=== PATIENT | female | born 1990 | race Caucasian/White ===

== ENCOUNTER 2016-06-09 10:19 | Emergency (ER) | payer BC, OTHER ==
[2016-06-09 10:26] VITALS: BP 118/70
--- NOTE | 2016-06-09 10:29 | ER Document Report ---
ED Medical Screen (RME) - General Stated Complaint: TOOTH PAIN Mode of Arrival: Ambulatory Information source: Patient Notes: Patient complains of dental pain off and on for one week. Patient reports having a recent dental extraction last week. No fever. hx: None I have greeted and performed a rapid initial assessment of this patient. A comprehensive ED assessment and evaluation of the patient, analysis of test results and completion of the medical decision making process will be conducted by additional ED providers. TRAVEL OUTSIDE OF THE [place] IN LAST 30 DAYS: No - Related Data Allergies/Adverse Reactions: amoxicillin [Amoxicillin] Allergy (Severe, Verified 06/09/16 10:28) sob, swelling clindamycin [Clindamycin] Allergy (Severe, Verified 06/09/16 10:28) rash, sob plums Allergy (Severe, Uncoded 06/09/16 10:28) swelling Past Medical History - Past Medical History Cardiac Medical History: Reports: Hx Hypertension - htn as a teen. none now Neurological Medical History: Skin Medical History: Reports Hx Cellulitis Infectious Medical History: Past Surgical History: Reports: Hx Section - x'2, Hx Tonsillectomy - Immunizations Hx Diphtheria, Pertussis, Tetanus Vaccination: Yes Physical Exam - Vital signs Vitals: Temp Pulse Resp BP Pulse Ox 97.8 F 75 16 118/70 100 06/09/16 10:25 06/09/16 10:06/09/16 10:06/09/16 10:25 06/09/16 10:25 - General General appearance: Appears well, Alert In distress: None Course - Vital Signs Vital signs: Temp Pulse Resp BP Pulse Ox 97.8 F 75 16 118/70 100 06/09/16 10:25 06/09/16 10:25 06/09/16 10:25 06/09/16 10:25 06/09/16 10:25
--- NOTE | 2016-06-09 12:21 | ER Document Report ---
ED Oral Problem - General Chief Complaint: Mouth Problem Stated Complaint: TOOTH PAIN Mode of Arrival: Ambulatory Information source: Patient Notes: 25-year-old female presents to the emergency department complaining of right upper posterior dental/gum pain and swelling. Patient reports had dental extraction last week and has had increased pain with localized swelling since. Denies fever or drainage, difficulty breathing or swallowing. TRAVEL OUTSIDE OF THE [place] IN LAST 30 DAYS: No - HPI Patient complains to provider of: Toothache Onset: Gradual Quality of pain: Achy Severity: Moderate Pain Level: 3 Context: Recent dental extractions Associated symptoms: Toothache Similar symptoms previously: Yes Recently seen / treated by doctor/dentist: Yes - Related Data Allergies/Adverse Reactions: amoxicillin [Amoxicillin] Allergy (Severe, Verified 06/09/16 10:28) sob, swelling clindamycin [Clindamycin] Allergy (Severe, Verified 06/09/16 10:28) rash, sob plums Allergy (Severe, Uncoded 06/09/16 10:28) swelling Past Medical History - General Information source: Patient - Social History Smoking Status: Unknown if Ever Smoked Chew tobacco use (# tins/day): No Frequency of alcohol use: Occasional Drug Abuse: None Lives with: Family Family History: Arthritis, CAD, DM - p, Hyperlipidemia, Hypertension, Malignancy , Thyroid Disfunction Patient has suicidal ideation: No Patient has homicidal ideation: No - Past Medical History Cardiac Medical History: Reports: Hx Hypertension - htn as a teen. none now Neurological Medical History: Renal/ Medical History: Denies: Hx Peritoneal Dialysis Skin Medical History: Reports Hx Cellulitis Infectious Medical History: Past Surgical History: Reports: Hx Section - x'2, Hx Orthopedic Surgery - Finger, Hx Tonsillectomy - Immunizations Hx Diphtheria, Pertussis, Tetanus Vaccination: Yes Review of Systems - Review of Systems Constitutional: No symptoms reported EENT: See HPI Cardiovascular: No symptoms reported Respiratory: No symptoms reported Gastrointestinal: No symptoms reported Genitourinary: No symptoms reported Female Genitourinary: No symptoms reported Musculoskeletal: No symptoms reported Skin: No symptoms reported Hematologic/Lymphatic: No symptoms reported Neurological/Psychological: No symptoms reported -: Yes All other systems reviewed and negative Physical Exam - Vital signs Vitals: Temp Pulse Resp BP Pulse Ox 97.8 F 75 16 118/70 100 06/09/16 10:25 06/09/16 10:25 06/09/16 10:25 06/09/16 10:25 06/09/16 10:25 Interpretation: Normal - General General appearance: Appears well, Alert In distress: None - HEENT Head: Normocephalic, Atraumatic Eyes: Normal Conjunctiva: Normal Pupils: PERRL Ears: Normal External canal: Normal Tympanic membrane: Normal Sinus: Normal Nasal: Normal Mouth/Lips: No: Angioedema Mucous membranes: Normal, Moist Teeth diagram: 1 - Tenderness to palpation and mild localized swelling. No drainage or fluctuance. Pharynx: Normal. No: Blood in hypopharynx, Erythema, Exudate, Peritonsillar abscess, Post nasal drainage, Retropharyngeal abscess, Tonsillar hypertrophy, Uvular edema, Potential airway comprom., Other Neck: Normal. No: Anterior cervical chain, Posterior cervical chain, Lymphadenopathy, Meningismus, Subcutaneous emphysema - Respiratory Respiratory status: No respiratory distress Chest status: Nontender Breath sounds: Normal Chest palpation: Normal - Cardiovascular Rhythm: Regular Heart sounds: Normal auscultation Murmur: No - Extremities General upper extremity: Normal inspection, Nontender, Normal color, Normal ROM , Normal temperature General lower extremity: Normal inspection, Nontender, Normal color, Normal ROM , Normal temperature, Normal weight bearing - Neurological Neuro grossly intact: Yes Cognition: Normal Orientation: AAOx4 [place] Coma Scale Eye Opening: Spontaneous Angelita Coma Scale Verbal: Oriented [place] Coma Scale Motor: Obeys Commands [place] Coma Scale Total: 15 Speech: Normal Motor strength normal: LUE, RUE, LLE, RLE Sensory: Normal - Psychological Associated symptoms: Normal affect, Normal mood - Skin Skin Temperature: Warm Skin Moisture: Dry Skin Color: Normal Course - Re-evaluation Re-evalutation: 06/09/16 12:27 Patient hemodynamically stable, in no distress, afebrile, nontoxic, and appears well-hydrated. No suggestion of abscess, Darrion angina, or significant deep space or soft tissue infection at this time. Will give short course of Keflex due to patient reported allergy to amoxicillin and clindamycin. States has taken cephalexin in the past without adverse affects. Patient appears stable for discharge and agrees with home care, follow-up with dental provider, and ED return precautions. - Vital Signs Vital signs: Temp Pulse Resp BP Pulse Ox 97.8 F 75 16 118/70 100 06/09/16 10:25 06/09/16 10:25 06/09/16 10:25 06/09/16 10:25 06/09/16 10:25 Discharge - Discharge Clinical Impression: Pain, dental Condition: Stable Disposition: HOME, SELF-CARE Instructions: Cephalexin ([facility]), Anti-Inflammatory Medication ([facility]), Toothache ( [facility]) Additional Instructions: Follow-up with your dentist on Friday as discussed. Return to the emergency department for any worsening symptoms or concerns. Prescriptions: Cephalexin Monohydrate [Keflex 500 mg Capsule] 500 mg PO BID 5 Days Naproxen 500 mg PO BIDP PRN #10 tablet PRN Reason:
== END 2016-06-09 12:51 | disposition home or self-care (01) ==
LOC: ER 10:19
DX: K08.89 Other specified disorders of teeth and supporting structures (principal)
CPT/HCPCS: 99282

== ENCOUNTER 2017-12-15 09:32 | Emergency (ER) | payer BC, OTHER ==
[2017-12-15] MEDS ORDERED: KETOROLAC TROMETHAMINE INJ/PF 30 MG/1 ML SDV IV ONE (10:02)
--- NOTE | 2017-12-15 10:03 | ER Document Report ---
ED Medical Screen (RME) - General Chief Complaint: Abdominal Pain Stated Complaint: ABDOMEN PAIN Time Seen by Provider: 12/15/17 09:55 Notes: 27-year-old female patient emergency department complaining of right lower quadrant pain. Patient states the pain is come and goes. Whenever she has to have a bowel movement she can feel pain in the right lower quadrant seems to be popping. Feels like there is air in her right lower quadrant. Has had cysts in the past but has never felt like this. Patient has had 4 previous C- sections. States that she just started her menstrual cycle. Denies any fever, chills, sweats. States that she has tried ibuprofen at home but it is not helping and she is nervous that this is something else bad. Her mother is a nurse and her mother has her concerned that this could be appendicitis. I have greeted and performed a rapid initial assessment of this patient. A comprehensive ED assessment and evaluation of the patient, analysis of test results and completion of the medical decision making process will be conducted by additional ED providers. TRAVEL OUTSIDE OF THE [place] IN LAST 30 DAYS: No - Related Data Allergies/Adverse Reactions: amoxicillin [Amoxicillin] Allergy (Severe, Verified 12/15/17 09:32) sob, swelling clindamycin [Clindamycin] Allergy (Severe, Verified 12/15/17 09:32) rash, sob plums Allergy (Severe, Uncoded 12/15/17 09:32) swelling Past Medical History - Past Medical History Cardiac Medical History: Reports: Hx Hypertension - htn as a teen. none now Neurological Medical History: Renal/ Medical History: Denies: Hx Peritoneal Dialysis Skin Medical History: Reports Hx Cellulitis Infectious Medical History: Past Surgical History: Reports: Hx Section - x'2, Hx Orthopedic Surgery - Finger, Hx Tonsillectomy - Immunizations Hx Diphtheria, Pertussis, Tetanus Vaccination: Yes Physical Exam - Vital signs Vitals: Temp Pulse Resp BP Pulse Ox 98.1 F 69 16 134/86 H 100 12/15/17 09:41 12/15/17 09:41 12/15/17 09:41 12/15/17 09:41 12/15/17 09:41 Course - Vital Signs Vital signs: Temp Pulse Resp BP Pulse Ox 98.1 F 69 16 134/86 H 100 12/15/17 09:41 12/15/17 09:41 12/15/17 09:41 12/15/17 09:41 12/15/17 09:41
[2017-12-15 10:51] LABS: ABSOLUTE EOSINOPHILS # (AUTO) 0.1 10^3/uL (0.0-0.6); ABSOLUTE LYMPHOCYTES (AUTO) 0.9 10^3/uL (0.5-4.7); ABSOLUTE MONOCYTES (AUTO) 0.4 10^3/uL (0.1-1.4); BASOPHILS % (AUTO) 0.7 % (0-2); EOSINOPHILS % (AUTO) 2.2 % (0-6); HEMATOCRIT 37.6 % (36.0-47.0); HEMOGLOBIN 12.8 g/dL (12.0-15.5); LYMPHOCYTES % (AUTO) 15.9 % (13-45); MEAN CORPUSCULAR HEMOGLOBIN 28.7 pg (27.0-33.4); MEAN CORPUSCULAR VOLUME 84 fl (80-97); MONOCYTES % (AUTO) 7.1 % (3-13); PLATELET COUNT 210 10^3/uL (150-450); RED BLOOD COUNT 4.45 10^6/uL (3.72-5.28); RED CELL DISTRIBUTION WIDTH 14.6 % (11.5-14.0); SEGMENTED NEUTROPHILS % (AUTO) 74.1 % (42-78); TOTAL CELLS COUNTED % (AUTO) 100 %; WHITE BLOOD COUNT 5.4 10^3/uL (4.0-10.5)
[2017-12-15 10:57] LABS: APPEARANCE,URINE CLEAR; BILIRUBIN,URINE NEGATIVE (NEGATIVE); COLOR,URINE STRAW; GLUCOSE, URINE NEGATIVE (NEGATIVE); KETONES,URINE NEGATIVE (NEGATIVE); LEUKOCYTE ESTERASE,URINE NEGATIVE (NEGATIVE); NITRITE,URINE NEGATIVE (NEGATIVE); PROTEIN,URINE NEGATIVE (NEGATIVE); URINE SPECIFIC GRAVITY 1.009; UROBILINOGEN,URINE NEGATIVE mg/dL (<2.0)
[2017-12-15] MEDS ORDERED: NORMAL SALINE 1000 ML 1,000 ML IV ONE (11:03)
[2017-12-15] MEDS ORDERED: MORPHINE SULFATE 10 MG/ML INJ IV ONE (11:05)
--- NOTE | 2017-12-15 11:05 | ER Document Report ---
ED GI/ - General Chief Complaint: Abdominal Pain Stated Complaint: ABDOMEN PAIN Time Seen by Provider: 12/15/17 09:55 Mode of Arrival: Ambulatory Information source: Patient Notes: Patient presents complaining of right lower quadrant pain for the past few weeks. Patient states that her pain started about 2-1/2 weeks ago but worsened over the past 3 days. Patient does complain of nausea but denies any vomiting or diarrhea. Patient states starting her menstrual cycle today but does not feel her pain symptoms are related to her menstrual cycle. Patient denies any fever, vomiting or diarrhea. Patient denies any urinary symptoms. Patient denies any concern about any kind of STD. Patient states she had similar episode several months ago and then the pain resolved. Patient is concerned that she has appendicitis. TRAVEL OUTSIDE OF THE [place] IN LAST 30 DAYS: No - HPI Patient complains to provider of: Pelvic pain. No: Dysuria, Vaginal discharge, Vaginal pain, Vomiting Onset: Other Timing/Duration: Persistent Quality of pain: Sharp Pain Level: 4 Location: RLQ Vaginal bleeding (Compared to normal period): Similar Menstrual period history: denies: Sexual history: denies: STD exposure Associated symptoms: Nausea. denies: Dysuria, Fever, Urinary hesitancy, Urinary frequency, Urinary retention, Urinary urgency, Vomiting Exacerbated by: Denies Relieved by: Denies Similar symptoms previously: Yes Recently seen / treated by doctor: No - Related Data Allergies/Adverse Reactions: amoxicillin [Amoxicillin] Allergy (Severe, Verified 12/15/17 09:32) sob, swelling clindamycin [Clindamycin] Allergy (Severe, Verified 12/15/17 09:32) rash, sob plums Allergy (Severe, Uncoded 12/15/17 09:32) swelling Past Medical History - General Information source: Patient - Social History Smoking Status: Never Smoker Frequency of alcohol use: None Drug Abuse: None Occupation: Retail Lives with: Family Family History: Arthritis, CAD, DM - p, Hyperlipidemia, Hypertension, Malignancy , Thyroid Disfunction Patient has suicidal ideation: No Patient has homicidal ideation: No - Past Medical History Cardiac Medical History: Reports: Hx Hypertension - htn as a teen. none now Neurological Medical History: Renal/ Medical History: Denies: Hx Peritoneal Dialysis Skin Medical History: Reports Hx Cellulitis Psychiatric Medical History: Reports: Hx Depression Infectious Medical History: Past Surgical History: Reports: Hx Section - x'2, Hx Orthopedic Surgery - Finger, Hx Tonsillectomy - Immunizations Hx Diphtheria, Pertussis, Tetanus Vaccination: Yes Review of Systems - Review of Systems Constitutional: No symptoms reported. denies: Fever EENT: No symptoms reported Cardiovascular: No symptoms reported. denies: Chest pain Respiratory: No symptoms reported. denies: Cough, Short of breath Gastrointestinal: Abdominal pain, Nausea. denies: Diarrhea, Vomiting Genitourinary: No symptoms reported. denies: Dysuria, Flank pain Female Genitourinary: Vaginal bleeding. denies: , Vaginal discharge Musculoskeletal: No symptoms reported. denies: Back pain Skin: No symptoms reported Hematologic/Lymphatic: No symptoms reported Neurological/Psychological: No symptoms reported Physical Exam - Vital signs Vitals: Temp Pulse Resp BP Pulse Ox 98.1 F 69 16 134/86 H 100 12/15/17 09:41 12/15/17 09:41 12/15/17 09:41 12/15/17 09:41 12/15/17 09:41 - General General appearance: Alert In distress: None - HEENT Head: Normocephalic, Atraumatic Eyes: Normal Conjunctiva: Normal Nasal: Normal Mouth/Lips: Normal Mucous membranes: Normal Pharynx: Normal Neck: Normal, Supple. No: Lymphadenopathy - Respiratory Respiratory status: No respiratory distress Chest status: Nontender Breath sounds: Normal. No: Rales, Rhonchi, Stridor, Wheezing Chest palpation: Normal - Cardiovascular Rhythm: Regular Heart sounds: S1 appreciated, S2 appreciated Murmur: No - Abdominal Inspection: Normal Distension: No distension Bowel sounds: Normal Tenderness: Tender - RLQ, suprapubic, McBurney's point, Guarding. No: Means's sign Organomegaly: No organomegaly - Genitourinary External exam: Normal Speculum exam: Cervix closed Vaginal bleeding: Mild Bimanuel exam: Cervical motion tender, Adnexal tenderness - right. No: Adnexal mass - Back Back: Normal, Nontender. No: CVA tenderness - Extremities General upper extremity: Normal inspection, Normal ROM General lower extremity: Normal inspection, Normal ROM - Neurological Neuro grossly intact: Yes Cognition: Normal [place] Coma Scale Eye Opening: Spontaneous [place] Coma Scale Verbal: Oriented [place] Coma Scale Motor: Obeys Commands Angelita Coma Scale Total: 15 - Psychological Associated symptoms: Normal affect, Normal mood - Skin Skin Temperature: Warm Skin Moisture: Dry Skin Color: Normal Course - Re-evaluation Re-evalutation: 12/15/17 13:[address] Yu who will evaluate patient's CT scan and consult on patient. 12/15/17 15:[address] Yu who reviewed patient's CT scan. Dr. Yu does not feel that patient has appendicitis nor can he find evidence for inguinal hernias at this time. Does feel that patient's symptoms are likely related to the ovaries and recommends [facility] follow-up. 12/15/17 15:25 Patient's abdomen soft, patient nontoxic in appearance. Discussed results of diagnostic test results. Patient encouraged to follow-up with a middle school math teacher for further evaluation. Patient without any fever or leukocytosis. 12/15/17 15:[address] Davis regarding patient's CT and ultrasound report findings. Recommends treating for likely PID and having her follow-up in the office for recheck. - Vital Signs Vital signs: Temp Pulse Resp BP Pulse Ox 98.5 F 64 20 111/76 100 12/15/17 17:00 12/15/17 17:00 12/15/17 17:00 12/15/17 17:00 12/15/17 17:00 - Laboratory Result Diagrams: 12/15/17 10:16 12/15/17 10:16 Laboratory results interpreted by me: 12/15/17 12/15/17 12/15/17 10:16 10:16 10:16 RDW 14.6 H Chloride 108 H Glucose 74 L Urine Blood LARGE H 12/15/17 15:25 Labs- Entire Visit 12/15/17 12/15/17 12/15/17 10:16 10:16 10:16 WBC 5.4 RBC 4.45 Hgb 12.8 Hct 37.6 MCV 84 MCH 28.7 MCHC 34.0 RDW 14.6 H Plt Count 210 Seg Neutrophils % 74.1 Lymphocytes % 15.9 Monocytes % 7.1 Eosinophils % 2.2 Basophils % 0.7 Absolute Neutrophils 4.0 Absolute Lymphocytes 0.9 Absolute Monocytes 0.4 Absolute Eosinophils 0.1 Absolute Basophils 0.0 Sodium 143.9 Potassium 4.5 Chloride 108 H Carbon Dioxide 26 Anion Gap 10 BUN 12 Creatinine 0.66 Est GFR ( Amer) > 60 Est GFR (Non-Af Amer) > 60 Glucose 74 L Calcium 8.9 Total Bilirubin 0.4 Direct Bilirubin 0.3 Neonat Total Bilirubin Not Reportable Neonat Direct Bilirubin Not Reportable Neonat Indirect Bili Not Reportable AST 29 ALT 24 Alkaline Phosphatase 50 Total Protein 7.2 Albumin 4.2 Urine Color STRAW Urine Appearance CLEAR Urine pH 5.0 Ur Specific [place] 1.009 Urine Protein NEGATIVE Urine Glucose (UA) NEGATIVE Urine Ketones NEGATIVE Urine Blood LARGE H Urine Nitrite NEGATIVE Urine Bilirubin NEGATIVE Urine Urobilinogen NEGATIVE Ur Leukocyte Esterase NEGATIVE Urine WBC (Auto) 5 Urine RBC (Auto) 105 Squamous Epi Cells Auto 1 Urine Mucus (Auto) RARE Urine Ascorbic Acid NEGATIVE Urine HCG, Qual NEGATIVE Trichomonas (Wet Prep) Vaginal WBC Vaginal RBC Vaginal Yeast 12/15/17 14:55 WBC RBC Hgb Hct MCV MCH MCHC RDW Plt Count Seg Neutrophils % Lymphocytes % Monocytes % Eosinophils % Basophils % Absolute Neutrophils Absolute Lymphocytes Absolute Monocytes Absolute Eosinophils Absolute Basophils Sodium Potassium Chloride Carbon Dioxide Anion Gap BUN Creatinine Est GFR ( Amer) Est GFR (Non-Af Amer) Glucose Calcium Total Bilirubin Direct Bilirubin Neonat Total Bilirubin Neonat Direct Bilirubin Neonat Indirect Bili AST ALT Alkaline Phosphatase Total Protein Albumin Urine Color Urine Appearance Urine pH Ur Specific [place] Urine Protein Urine Glucose (UA) Urine Ketones Urine Blood Urine Nitrite Urine Bilirubin Urine Urobilinogen Ur Leukocyte Esterase Urine WBC (Auto) Urine RBC (Auto) Squamous Epi Cells Auto Urine Mucus (Auto) Urine Ascorbic Acid Urine HCG, Qual Trichomonas (Wet Prep) NO TRICHOMONAS SEEN Vaginal WBC RARE WBCS SEEN Vaginal RBC 3+ RBCS SEEN Vaginal Yeast NO YEAST SEEN - Diagnostic Test Radiology reviewed: Reports reviewed Discharge - Discharge Clinical Impression: PID (acute pelvic inflammatory disease) Abdominal pain Qualifiers: Abdominal location: right lower quadrant Qualified Code(s): R10.31 - Right lower quadrant pain Condition: Stable Disposition: HOME, SELF-CARE Instructions: Abdominal Pain ([facility]), Doxycycline ([facility]), Pelvic Inflammatory Disease ([facility]), Rocephin ([facility]) Additional Instructions: Return immediately for any new or worsening symptoms Followup with your primary care provider, call tomorrow to make a followup appointment Follow-up with middle school math teacher for further evaluation, call tomorrow for an appointment time Prescriptions: Doxycycline Hyclate 100 mg PO BID #28 capsule Naproxen [Naprosyn 250 Nmg Tablet] 1 tab PO BID #14 tablet Forms: Return to Work Referrals: [facility] [Provider Group] - Follow up in 3-5 days
[2017-12-15 11:13] LABS: ALANINE AMINOTRANSFERASE 24 U/L (9-52); ALBUMIN 4.2 g/dL (3.5-5.0); ALKALINE PHOSPHATASE 50 U/L (38-126); ANION GAP 10 (5-19); ASPARTATE AMINO TRANSFERASE 29 U/L (14-36); BILIRUBIN,DIRECT 0.3 mg/dL (0.0-0.4); BILIRUBIN,TOTAL 0.4 mg/dL (0.2-1.3); BLOOD UREA NITROGEN 12 mg/dL (7-20); CALCIUM 8.9 mg/dL (8.4-10.2); CARBON DIOXIDE 26 mmol/L (22-30); CHLORIDE 108 mmol/L (98-107); GLUCOSE 74 mg/dL (75-110); POTASSIUM 4.5 mmol/L (3.6-5.0); SODIUM 143.9 mmol/L (137-145); TOTAL PROTEIN 7.2 g/dL (6.3-8.2)
--- NOTE | 2017-12-15 12:37 | RADIOLOGY REPORT (SQ) ---
EXAM DESCRIPTION: U/S NON OB PEL TV W/DOPPLER COMPLETED DATE/TIME: 12/15/2017 12:15 pm REASON FOR STUDY: RLQ pain COMPARISON: None. TECHNIQUE: Dynamic and static grayscale images acquired of the pelvis via transvaginal approach and recorded on PACS. Additional selected color Doppler and spectral images recorded. LIMITATIONS: None. FINDINGS: UTERUS: Contour normal. No mass. ENDOMETRIAL STRIPE: No focal or generalized thickening. No masses. CERVIX: Nabothian cysts. RIGHT OVARY AND DOPPLER: Ovary not visualized. LEFT OVARY AND DOPPLER: Ovary not visualized. FREE FLUID: None noted. OTHER: No other significant finding. MEASUREMENTS: UTERUS: 9.9 x 6.2 x 5.2 cm ENDOMETRIAL STRIPE: 4 mm RIGHT OVARY: Not visualized. LEFT OVARY: Not visualized. IMPRESSION: The ovaries are not visualized. No significant findings. TECHNICAL DOCUMENTATION: JOB ID: [id number] [employer]- All Rights Reserved Rev-09/05 Reading location - IP/workstation name: [email or web address]
[2017-12-15] MEDS ORDERED: DEXTROSE 5%-NORMAL SALINE 1,000 ML IV ONE (13:03)
--- NOTE | 2017-12-15 13:27 | RADIOLOGY REPORT (SQ) ---
EXAM DESCRIPTION: CT ABD/PELVIS WITH IV ORAL COMPLETED DATE/TIME: 12/15/2017 12:54 pm REASON FOR STUDY: RLQ pain COMPARISON: None. TECHNIQUE: CT scan of the abdomen and pelvis performed using helical scanning technique with dynamic intravenous contrast injection. No oral contrast. Images reviewed with lung, soft tissue, and bone windows. Reconstructed coronal and sagittal MPR images reviewed. Delayed images for evaluation of the urinary system also acquired. All images stored on PACS. All CT scanners at this facility use dose modulation, iterative reconstruction, and/or weight based d osing when appropriate to reduce radiation dose to as low as reasonably achievable (ALARA). [facility]: Dose Right [facility]: CareDose [facility]: Dose Right [facility]: Teradose 4D [facility]: Tytanium Ideas CONTRAST TYPE AND DOSE: contrast/concentration: Isovue 350.00 mg/ml; Total Contrast Delivered: 85.0 ml; Total Saline Delivered: 69.0 ml RENAL FUNCTION: None required. The patient is less than 50 years old. RADIATION DOSE: CT Rad equipment meets quality standard of care and radiation dose reduction techniq ues were employed. CTDIvol: NaN - NaN mGy. DLP: 0 mGy-cm.. LIMITATIONS: None. FINDINGS: LOWER CHEST: No significant findings. No nodules or infiltrates. LIVER: Normal size. No masses. No dilated ducts. SPLEEN: Normal size. No focal lesions. PANCREAS: No masses. No significant calcifications. No adjacent inflammation or peripancreatic fluid collections. Pancreatic duct not dilated. GALLBLADDER: No identified stones by CT criteria. No inflammatory changes to suggest cholecystitis. ADRENAL GLANDS: No significant masses or asymmetry. RIGHT KIDNEY AND URETER: No solid masses. No significant calcifications. No hydronephrosis or hyd roureter. LEFT KIDNEY AND URETER: No solid masses. No significant calcifications. No hydronephrosis or hydr oureter. AORTA AND VESSELS: No aneurysm. No dissection. Renal arteries, SMA, celiac without stenosis. RETROPERITONEUM: No retroperitoneal adenopathy, hemorrhage or masses. BOWEL AND PERITONEAL CAVITY: Constipation. No masses or inflammatory changes. No free fluid or meg toneal masses. APPENDIX: The visualized appendix is unremarkable in appearance. PELVIS: The ovaries bilaterally are prominent in appearance with small hypoattenuated structures, ma y represent bilateral ovarian follicles. The fat surrounding the ovaries is slightly hazy in appeara nce. These findings raise the question of possible inflammatory changes. Small amount of free fluid in the cul-de-sac may be on a physiologic basis. Normal bladder. ABDOMINAL WALL: Bilateral inguinal hernias are suggested, with the one on the right containing a sma ll segment of small bowel. No evidence of obstruction. Small fat containing inguinal herniae M. BONES: No significant or acute findings. OTHER: No other significant finding. IMPRESSION: 1 The ovaries are prominent bilaterally with hypoattenuated structures present, which ma y be on the basis of ovarian follicles. The fat surrounding the ovaries is slightly hazy in appearan ce raising the question of possible inflammatory changes. Correlation suggested 2. Small bilateral inguinal hernias are suggested which contain short segments of small bowel. No e vidence of obstruction. 3. The visualized appendix is unremarkable in appearance. 4. If symptoms are persistent, follow-up examination is suggested for re- evaluation. COMMENT: 1 The results of this examination were discussed with the emergency department provider on 12/15/2017 at 13:14 hours. TECHNICAL DOCUMENTATION: JOB ID: [id number] Quality ID # [id number]: Final reports with documentation of one or more dose reduction techniques (e.g., Au tomated exposure control, adjustment of the mA and/or kV according to patient size, use of iterative reconstruction technique) 2010 [employer]- All Rights Reserved Reading location - IP/workstation name: [email or web address]
[2017-12-15 15:14] LABS: RBCS (WET MOUNT) 3+ RBCS SEEN; T.VAGINALIS (WET MOUNT) NO TRICHOMONAS SEEN; WBCS (WET MOUNT) RARE WBCS SEEN; YEAST (WET MOUNT) NO YEAST SEEN
[2017-12-15] MEDS ORDERED: DOXYCYCLINE HYCLATE 100 MG TABLET PO ONE (15:49)
[2017-12-15] MEDS ORDERED: CEFTRIAXONE INJ 250 MG VIAL IV ONE (15:49)
[2017-12-15 16:47] LABS: CHLAM PCR NOT DETECTED (NOT DETECT); GON PCR NOT DETECTED (NOT DETECT)
[2017-12-15 17:30] VITALS: BP 111/76
== END 2017-12-15 17:30 | disposition home or self-care (01) ==
LOC: ER 09:32
DX: N73.0 Acute parametritis and pelvic cellulitis (principal); R10.31 Right lower quadrant pain; R11.0 Nausea; Z88.0 Allergy status to penicillin
CPT/HCPCS: 99284; 96361; 96375; 96365; 36415; 87210; 85025; 81025; 80053; 81001; 87491; 87591; 76830; 93976; 74177; J1885; J2270; J7030; J0696

== ENCOUNTER 2019-01-26 05:34 | Day surgery (SDC) | payer BC, OTHER ==
[2019-01-22 10:57] LABS: HEMATOCRIT 36.2 % (36.0-47.0); HEMOGLOBIN 12.4 g/dL (12.0-15.5); MEAN CORPUSCULAR HEMOGLOBIN 28.8 pg (27.0-33.4); MEAN CORPUSCULAR HGB CONC 34.2 g/dL (32.0-36.0); MEAN CORPUSCULAR VOLUME 84 fl (80-97); PLATELET COUNT 184 10^3/uL (150-450); RED CELL DISTRIBUTION WIDTH 13.9 % (11.5-14.0); WHITE BLOOD COUNT 3.7 10^3/uL (4.0-10.5)
[~2019-01-26 05:34] MED LIST: CLINDAMYCIN 600 MG/D5W RTU 600 MG/50 ML RTUPB IV ONE; SCOPOLAMINE HYDROBROMIDE 1.5 MG PATCH.TD72 ONE
[2019-01-26] MEDS ORDERED: FENTANYL CITRATE INJ/PF 100 MCG/2 ML AMPUL ONE (06:40)
[2019-01-26] MEDS ORDERED: KETOROLAC TROMETHAMINE 60 MG/2 ML SDV ONE (06:40)
[2019-01-26] MEDS ORDERED: ONDANSETRON HCL INJ/PF 4 MG/2 ML SDV ONE (06:40)
[2019-01-26] MEDS ORDERED: MIDAZOLAM 2 MG/2 ML INJ ONE (06:40)
[2019-01-26] MEDS ORDERED: DEXAMETHASONE SOD PHOSPHATE INJ 4 MG/1 ML VIAL ONE (06:40)
[2019-01-26] MEDS ORDERED: PROPOFOL INJ 200 MG/20 ML VIAL IV ONE (06:41)
[2019-01-26] MEDS ORDERED: HYDROMORPHONE HCL INJ/PF 2 MG/ML AMPULE ONE (06:41)
[2019-01-26] MEDS ORDERED: BUPIVACAINE HCL 0.25 % INJ/PF (2.5 MG/1 ML) 30 ML VIAL ONE (07:04)
[2019-01-26] MEDS ORDERED: CEFAZOLIN INJ 1 GM VIAL ONE (07:15)
[2019-01-26] MEDS ORDERED: FENTANYL CITRATE INJ/PF 100 MCG/2 ML AMPUL IV PRN ×3 (07:35)
[2019-01-26] MEDS ORDERED: ONDANSETRON HCL INJ/PF 4 MG/2 ML SDV IV PRN (07:35)
[2019-01-26] MEDS ORDERED: DIPHENHYDRAMINE HCL 50 MG/ML VIAL IV PRN (07:35)
[2019-01-26] MEDS ORDERED: PROMETHAZINE HCL INJ 25 MG/1 ML VIAL IV PRN ×2 (07:35)
[2019-01-26] MEDS ORDERED: BUPIVACAINE HCL 0.25 % INJ/PF (2.5 MG/1 ML) 30 ML VIAL INJ ONE (07:42)
[2019-01-26] MEDS ORDERED: SUGAMMADEX SODIUM 200 MG/2 ML SDV IV ONE (08:24)
--- NOTE | 2019-01-26 08:24 | Discharge Summary ---
Discharge Summary (SDC) - Discharge Final Diagnosis: right inguinal hernia Date of Surgery: 01/26/19 Discharge Date: 01/26/19 Condition: Good Referrals: SHAY LUNA PA-C [Primary Care Provider] - Discharge Diet: As Tolerated Discharge Activity: Activity As Tolerated, No Lifting Over 10 Pounds, No Lifting/Push/Pulling Home Care Assistance: None Needed Report the Following to Your Physician Immediately: Shortness of Breath, Nausea, Vomiting, Increase in Pain, Fever over 101 Degrees - pt needs a f/u iwth me in 10-14 days., Unusual Bleeding
--- NOTE | 2019-01-26 08:34 | Operative Report ---
Operative Report DATE OF SURGERY: 01/26/19 PREOPERATIVE DIAGNOSIS: right inguinal hernia POSTOPERATIVE DIAGNOSIS: right inguinal hernia OPERATION: repair of right inguinal henria SURGEON: CUCO MEJIA 1ST MEN'S DESIGNER: KRYSTA SALAMANCA ANESTHESIA: GA TISSUE REMOVED OR ALTERED: none COMPLICATIONS: none ESTIMATED BLOOD LOSS: 5cc INTRAOPERATIVE FINDINGS: see note PROCEDURE: Patient was brought to the operating when awake and alert in stable condition placed in the operative table supine position induced under general anesthesia intubated. The lower abdomen right groin was prepped and draped in usual sterile manner for the procedure. Oblique incision was made in the right lower quadrant at the external ring approximately 6 cm long dissection carried down through subtenons tissue with Bovie cautery the Edita's fascia was opened with Bovie cautery. We isolated the external oblique fashion isolated the external ring a oblique incision was made directly over the external ring and the fascia was split with the Metzenbaum scissors to identify the ligament. I am ligament was mobilized out of the groin and divided with Bovie cautery. The proximal portion of the round ligament was isolated hemostat was placed on it and the hernia sac was identified it was dissected back to the internal ring opened twisted upon itself and ligated with 0 Ethibond suture and the stump allowed to drop back into the preperitoneal space. Using a piece of polypropylene mesh oval in nature the tip of the mesh was attached to the pubic tubercle and then medially was attached to the conjoined tendon with interrupted 0 Ethibond sutures laterally it was attached to Poupart's ligament. This could cover the hernia defect. Was then tucked under the external oblique fascia. The external oblique was then reapproximated with a running 2-0 Vicryl suture. The area was anesthetized with 1% lidocaine with epinephrine. Edita's fascia was reapproximated with interrupted 3-0 Vicryl suture in the subdermal layer was closed with interrupted 3-0 Vicryl suture skin was closed with 4-0 Monocryl Steri-Strips completed the procedure estimated blood loss less than 5 cc sponge needle counts correct x2 patient was awakened in the operating explained transferred recovery in stable condition no complication Krysta WHITLEY was present for the entire operation for help with wound retraction wound closure
[2019-01-26] MEDS ORDERED: DIPHENHYDRAMINE HCL 50 MG/ML VIAL ONE (09:01)
[2019-01-26] MEDS ORDERED: METOCLOPRAMIDE HCL INJ/PF 10 MG/2 ML SDV ONE (09:01)
[2019-01-26] MEDS ORDERED: PROMETHAZINE HCL INJ 25 MG/1 ML VIAL ONE (09:01)
[2019-01-26] MEDS ORDERED: RINGERS SOLUTION,LACTATED 500 ML IV ONE (10:00)
[2019-01-26 12:09] VITALS: BP 95/58
[2019-01-26] MEDS ORDERED: ROCURONIUM BROMIDE INJ 50 MG/5 ML VIAL IV ONE (14:43)
== END 2019-01-26 10:40 | disposition home or self-care (01) ==
LOC: OROUT 05:34
PROVIDERS: ATTEND Surgery
DX: K40.90 Unilateral inguinal hernia, without obstruction or gangrene, not specified as recurrent (principal)
CPT/HCPCS: 36415; 85027; 81025; 00830; 49505; C1781; J2250; J0690; J3490 ×2; J1100; J1200; J1885; J2765; J1170; J2550; J2405; J2704; 830; J3010

== ENCOUNTER → 2019-03-30 | Outpatient (CLI) | payer OTHER ==
--- NOTE | 2019-03-30 17:31 | RADIOLOGY REPORT (SQ) ---
EXAM DESCRIPTION: U/S NON-OB PELVIS TV W/O DOP COMPLETED DATE/TIME: 03/30/2019 4:20 pm REASON FOR STUDY: (N92.0)EXCESSIVE AND FREQUENT MENSTRUATION WITH REGULAR CYCLE M54.5 LOW BACK PAIN N92.0 EXCESSIVE AND FREQUENT MENSTRUATION WITH REGULAR CYCLE COMPARISON: Pelvic ultrasound 12/15/2017 CT abdomen pelvis 12/15/2017 TECHNIQUE: Dynamic and static grayscale images acquired of the pelvis via transvaginal approach and recorded on PACS. Additional selected color Doppler and spectral images recorded. LIMITATIONS: Pelvic bowel gas obscures the ovaries. Ovaries not seen transvaginally. FINDINGS: UTERUS: Contour normal. No mass. 10 x 5 x 7 cm in size ENDOMETRIAL STRIPE: No focal or generalized thickening. No masses. 13 mm in thickness CERVIX: No nabothian cysts. Closed, 2.7 cm in length RIGHT OVARY AND DOPPLER: Ovary not visualized. LEFT OVARY AND DOPPLER: Ovary not visualized. FREE FLUID: None noted. OTHER: No other significant finding. IMPRESSION: Uterus unremarkable. Ovaries not visualized by endovaginal scanning. TECHNICAL DOCUMENTATION: JOB ID: [id number] [employer]- All Rights Reserved Rev-09/05 Reading location - IP/workstation name: [email or web address]
--- NOTE | 2019-03-31 09:00 | RADIOLOGY REPORT (SQ) ---
EXAM DESCRIPTION: MRI LUMBAR SPINE WITHOUT COMPLETED DATE/TIME: 03/30/2019 3:54 pm REASON FOR STUDY: (M54.5)LOW BACK PAIN M54.5 LOW BACK PAIN N92.0 EXCESSIVE AND FREQUENT MENSTRUATI ON WITH REGULAR CYCLE COMPARISON: None. TECHNIQUE: Sagittal and Axial imaging includes T1, T2, STIR and gradient echo sequences. Coronal T2/ HASTE imaging. LIMITATIONS: None. FINDINGS: VISUALIZED UPPER ABDOMEN: Limited evaluation. No acute or suspicious findings suggested. SEGMENTATION: No transitional anatomy. The lowest well-developed disc space is labeled L5-S1. ALIGNMENT: Anatomic. VERTEBRAE: Intact. BONE MARROW: Normal. No marrow replacement or reactive changes. DISC SIGNAL: Normal. No significant abnormal signal or loss of height. POSTERIOR ELEMENTS: Generally intact. No pars defect evident. HARDWARE: None in the spine. CORD AND CONUS: Normal in size and signal intensity. Conus at the appropriate level. SOFT TISSUES: No aortic aneurysm seen. No bulky retroperitoneal adenopathy or mass. No paraspinal mas s or fluid. L1-L2: No significant spinal stenosis or exit foraminal stenosis. L2-L3: No significant spinal stenosis or exit foraminal stenosis. L3-L4: No significant spinal stenosis or exit foraminal stenosis. L4-L5: No significant spinal stenosis or exit foraminal stenosis. L5-S1: No significant spinal stenosis or exit foraminal stenosis. LOWER THORACIC: Incompletely imaged. No stenosis seen. SACRUM: Visualized upper sacrum intact. OTHER: No other significant findings. IMPRESSION: NORMAL MRI LUMBAR SPINE. TECHNICAL DOCUMENTATION: JOB ID: [id number] [employer]- All Rights Reserved Reading location - [facility]station name: [email or web address]
== END ==
LOC: RAD 15:14
PROVIDERS: ATTEND Physician Assistant
DX: M54.5 Low back pain (principal); N92.0 Excessive and frequent menstruation with regular cycle
CPT/HCPCS: 72148; 76830